=== PATIENT | female | born 1955 | race Caucasian/White ===

== ENCOUNTER → 2017-02-01 | Outpatient (CLI) | payer OTHER ==
[~2017-02-01] MED LIST: ALBUTEROL0.09 MG/A2; ASPIRIN325 MG PO; ASPIRIN81 M1; ATIVAN2 MG; ATIVAN2 MG PO; BACTRIM DS 8001 TA1 PO; CALCIUM PLUS1 TA1; CARDIZEM CD120 MG; CHOLESTEROL; FLONASE 0.05% 121 EA NAS; HYZAAR 25 MG-101 TA1 PO; INDERAL80 MG PO; LASIX20 MG; LIPITOR40 MG PO; LOFIBRA134 MG; NAPROSYN500 MG PO; NORCO 325 MG-51 TAB PO; PARAFON FORTE500 MG PO; PREDNISONE20 M1 PO; PREMARIN0.45 MG; PRILOSEC OTC20 MG PO; PROTONIX40 MG; PYRIDIUM200 MG PO; ROBITUSSIN DM 105 ML PO; SEREVENT DISKU50 MCG; TENORETIC 50 501 TAB PO; TENORMIN50 MG; TRAMADOL HCL50 MG PO; ULTRAM50 MG PO; VENTOLIN H0.09 MG/AC INH; WELLBUTRIN SR150 MG PO; ZANTAC 150150 MG PO
== END | disposition home or self-care (01) ==
LOC: RAD 17:39
DX: M48.07 Spinal stenosis, lumbosacral region (principal); M47.897 Other spondylosis, lumbosacral region; M16.0 Bilateral primary osteoarthritis of hip; I10 Essential (primary) hypertension; E11.9 Type 2 diabetes mellitus without complications

== ENCOUNTER → 2018-09-20 | Outpatient (CLI) | payer MEDICARE | END | disposition home or self-care (01) | LOC: RESCLI 14:16 | DX: E11.59 Type 2 diabetes mellitus with other circulatory complications (principal); E66.9 Obesity, unspecified; I10 Essential (primary) hypertension; F33.1 Major depressive disorder, recurrent, moderate; K21.9 Gastro-esophageal reflux disease without esophagitis; E55.9 Vitamin D deficiency, unspecified; M54.5 Low back pain; G89.29 Other chronic pain; Z79.899 Other long term (current) drug therapy; Z91.041 Radiographic dye allergy status ==

== ENCOUNTER → 2019-03-14 | Outpatient (CLI) | payer MEDICARE | END | disposition home or self-care (01) | LOC: RESCLI 01:07 | DX: E11.59 Type 2 diabetes mellitus with other circulatory complications (principal); I10 Essential (primary) hypertension; E55.9 Vitamin D deficiency, unspecified; K21.9 Gastro-esophageal reflux disease without esophagitis; F33.1 Major depressive disorder, recurrent, moderate; G89.29 Other chronic pain; E78.2 Mixed hyperlipidemia; J45.40 Moderate persistent asthma, uncomplicated; R42 Dizziness and giddiness; R51 Headache; I34.1 Nonrheumatic mitral (valve) prolapse; F41.0 Panic disorder [episodic paroxysmal anxiety]; R00.0 Tachycardia, unspecified; F41.9 Anxiety disorder, unspecified; E66.9 Obesity, unspecified; M25.551 Pain in right hip; M25.552 Pain in left hip; Z68.34 Body mass index [BMI] 34.0-34.9, adult; Z79.899 Other long term (current) drug therapy ==

== ENCOUNTER → 2019-04-16 | Outpatient (CLI) | payer MEDICARE ==
[2019-04-16 15:53] LABS: BASO # 0.1 10*3/uL (0.0-0.1); BASO % 0.6 % (0.0-1.0); EOS # 0.2 10*3/uL (0.0-0.4); EOS % 1.5 % (1.0-4.0); HEMOGLOBIN 12.6 g/dl (12.0-16.0); LYMPH # 2.7 10*3/uL (1.3-4.4); LYMPH % 17.7 % (27.0-41.0); MEAN CELL VOLUME 87.6 fl (81.0-99.0); MEAN CORPUSCULAR HGB 26.9 pg (27.0-31.0); MEAN CORPUSCULAR HGB CONC 30.7 g/dl (33.0-37.0); MEAN PLATELET VOLUME 9.9 fl (9.6-12.3); MONO % 6.8 % (3.0-9.0); NEUT # 11.2 10*3/uL (2.3-7.9); NEUT % 72.8 % (47.0-73.0); PLATELET COUNT AUTOMATED 482 10*3/uL (130-400); RED BLOOD COUNT 4.68 10*6/uL (4.10-5.10); RED CELL DISTRI WIDTH 15.9 % (0-14.5); WHITE BLOOD COUNT 15.4 10*3/uL (4.8-10.8)
[2019-04-16 16:00] LABS: ALBUMIN 3.6 gm/dl (3.1-4.5); ALKALINE PHOSPHATASE 72 U/L (45-117); BUN 14 mg/dl (7-24); CHLORIDE 99 mmol/L (98-107); CHOLESTEROL 192 mg/dL (<200); CREATININE 1.04 mg/dL (0.55-1.02); HDL CHOLESTEROL 54 mg/dl (40-60); POTASSIUM 4.3 mmol/L (3.5-5.1); SGOT/AST 26 IU/L (3-35); SGPT/ALT 19 U/L (12-78); SODIUM 139 mmol/L (136-145); TOTAL PROTEIN 8.6 gm/dL (6.4-8.2); TRIGLYCERIDES 450 mg/dl (<150)
== END | disposition home or self-care (01) ==
LOC: CT 03-23 10:00 → LAB 14:32 → CT 15:00
PROVIDERS: Internal Medicine
DX: E11.59 Type 2 diabetes mellitus with other circulatory complications (principal); E55.9 Vitamin D deficiency, unspecified; E66.9 Obesity, unspecified; I10 Essential (primary) hypertension; E78.2 Mixed hyperlipidemia; R51 Headache; R42 Dizziness and giddiness; M47.816 Spondylosis without myelopathy or radiculopathy, lumbar region; W10.8XXA Fall (on) (from) other stairs and steps, initial encounter; Y93.89 Activity, other specified; Y92.89 Other specified places as the place of occurrence of the external cause; Y99.8 Other external cause status

== ENCOUNTER → 2019-04-17 | Outpatient (CLI) | payer MEDICARE | END | disposition home or self-care (01) | LOC: RESCLI | DX: Z23 Encounter for immunization (principal); F33.1 Major depressive disorder, recurrent, moderate; R42 Dizziness and giddiness; E11.59 Type 2 diabetes mellitus with other circulatory complications; I10 Essential (primary) hypertension; E55.9 Vitamin D deficiency, unspecified; K21.9 Gastro-esophageal reflux disease without esophagitis; E78.2 Mixed hyperlipidemia; J45.40 Moderate persistent asthma, uncomplicated; R26.2 Difficulty in walking, not elsewhere classified; M54.41 Lumbago with sciatica, right side; M54.42 Lumbago with sciatica, left side; Z79.899 Other long term (current) drug therapy ==

== ENCOUNTER → 2019-08-29 | Outpatient (CLI) | payer MEDICARE | END | disposition home or self-care (01) | LOC: RESCLI 00:32 | DX: E11.59 Type 2 diabetes mellitus with other circulatory complications (principal); F33.1 Major depressive disorder, recurrent, moderate; E55.9 Vitamin D deficiency, unspecified; E78.2 Mixed hyperlipidemia; J45.40 Moderate persistent asthma, uncomplicated; K21.9 Gastro-esophageal reflux disease without esophagitis; I10 Essential (primary) hypertension; R42 Dizziness and giddiness ==

== ENCOUNTER → 2020-01-19 | Emergency (ER) | payer MEDICARE ==
[~2020-01-19] VITALS: Ht 167.6 cm; Wt 91.6 kg
[2020-01-19 07:59] LABS: BASO # 0.1 10*3/uL (0.0-0.1); BASO % 0.2 % (0.0-1.0); EOS # 0.6 10*3/uL (0.0-0.4); EOS % 2.6 % (1.0-4.0); HEMATOCRIT 33.5 % (37.0-47.0); LYMPH # 1.2 10*3/uL (1.3-4.4); LYMPH % 5.4 % (27.0-41.0); MEAN CELL VOLUME 81.1 fl (81.0-99.0); MEAN CORPUSCULAR HGB 25.2 pg (27.0-31.0); MEAN PLATELET VOLUME 8.6 fl (9.6-12.3); MONO # 1.1 10*3/uL (0.1-1.0); NEUT # 18.9 10*3/uL (2.3-7.9); NEUT % 85.5 % (47.0-73.0); PLATELET COUNT AUTOMATED 417 10*3/uL (130-400); RED BLOOD COUNT 4.13 10*6/uL (4.10-5.10); RED CELL DISTRI WIDTH 15.6 % (0-14.5); WHITE BLOOD COUNT 22.1 10*3/uL (4.8-10.8)
[2020-01-19 08:16] LABS: ALBUMIN 2.7 gm/dl (3.1-4.5); ALKALINE PHOSPHATASE 93 U/L (45-117); BUN 9 mg/dl (7-24); CHLORIDE 96 mmol/L (98-107); CREATININE 0.68 mg/dL (0.55-1.02); POTASSIUM 2.9 mmol/L (3.5-5.1); SGOT/AST 7 IU/L (3-35); SGPT/ALT 13 U/L (12-78); SODIUM 131 mmol/L (136-145); TOTAL PROTEIN 7.7 gm/dL (6.4-8.2)
[2020-01-19 09:21] VITALS: BP 162/70
== END ==
LOC: ED 07:31
PROVIDERS: Emergency Medicine
DX: G43.909 Migraine, unspecified, not intractable, without status migrainosus (principal); I10 Essential (primary) hypertension; E78.00 Pure hypercholesterolemia, unspecified; E11.9 Type 2 diabetes mellitus without complications; R79.1 Abnormal coagulation profile; Z91.041 Radiographic dye allergy status; Z79.899 Other long term (current) drug therapy; Z79.82 Long term (current) use of aspirin

== ENCOUNTER → 2021-06-24 | Outpatient (CLI) | payer MEDICARE ==
[2021-06-24 14:20] LABS: BASO # 0.1 10*3/uL (0.0-0.1); BASO % 0.9 % (0.0-1.0); EOS # 0.3 10*3/uL (0.0-0.4); EOS % 2.8 % (1.0-4.0); LYMPH # 3.3 10*3/uL (1.3-4.4); LYMPH % 28.7 % (27.0-41.0); MEAN CELL VOLUME 92.8 fl (81.0-99.0); MEAN CORPUSCULAR HGB 30.1 pg (27.0-31.0); MEAN CORPUSCULAR HGB CONC 32.4 g/dl (33.0-37.0); MEAN PLATELET VOLUME 9.2 fl (9.6-12.3); MONO # 0.7 10*3/uL (0.1-1.0); MONO % 6.3 % (3.0-9.0); NEUT # 6.8 10*3/uL (2.3-7.9); NEUT % 60.2 % (47.0-73.0); PLATELET COUNT AUTOMATED 398 10*3/uL (130-400); RED BLOOD COUNT 4.85 10*6/uL (4.10-5.10); RED CELL DISTRI WIDTH 12.5 % (0-14.5); WHITE BLOOD COUNT 11.4 10*3/uL (4.8-10.8)
[2021-06-24 14:41] LABS: ALBUMIN 3.3 gm/dl (3.1-4.5); ALKALINE PHOSPHATASE 97 U/L (45-117); BUN 13 mg/dl (7-24); CHLORIDE 100 mmol/L (98-107); CHOLESTEROL 229 mg/dL (<200); CREATININE 0.89 mg/dL (0.55-1.02); FREE T4 0.91 ng/dl (0.76-1.46); POTASSIUM 4.4 mmol/L (3.5-5.1); SGOT/AST 22 IU/L (3-35); SGPT/ALT 34 U/L (12-78); SODIUM 137 mmol/L (136-145); TOTAL PROTEIN 8.4 gm/dL (6.4-8.2); TRIGLYCERIDES 424 mg/dl (<150)
[2021-06-25 11:07] LABS: CREATININE,URINE 126.3 mg/dL (Not Estab.)
== END | disposition home or self-care (01) ==
LOC: LAB 01:11
PROVIDERS: ATTEND Internal Medicine
DX: E11.9 Type 2 diabetes mellitus without complications (principal); I10 Essential (primary) hypertension

== ENCOUNTER → 2021-07-22 | Outpatient (CLI) | payer MEDICARE | END | disposition home or self-care (01) | LOC: COVID19 16:06 | PROVIDERS: ATTEND Podiatrist Foot & Ankle Surgery | DX: U07.1 COVID-19 (principal) ==

== ENCOUNTER 2021-12-31 20:11 | Inpatient (IN) | payer MEDICARE ==
[~2021-12-31] VITALS: Ht 165.1 cm; Wt 84.0 kg
[2021-12-31 20:15] VITALS: BP 139/61
[2021-12-31] MEDS ORDERED: BUSPAR15 MG PO (20:25)
[2021-12-31] MEDS ORDERED: COZAAR50 M1 PO (20:25)
[2021-12-31] MEDS ORDERED: METFORMIN HYD1000 MG PO (20:25)
[2021-12-31] MEDS ORDERED: Synthroid,Levo50 MCG PO (20:27)
[2021-12-31] MEDS ORDERED: NORVASC10 MG PO (20:29)
[2021-12-31] MEDS ORDERED: PRILOSEC20 M1 PO (20:29)
[2021-12-31 20:37] LABS: BASO # 0.1 10*3/uL (0.0-0.1); BASO % 0.4 % (0.0-1.0); EOS # 0.2 10*3/uL (0.0-0.4); EOS % 0.9 % (1.0-4.0); HEMATOCRIT 40.5 % (37.0-47.0); LYMPH # 1.8 10*3/uL (1.3-4.4); LYMPH % 10.5 % (27.0-41.0); MEAN CELL VOLUME 93.8 fl (81.0-99.0); MEAN CORPUSCULAR HGB 30.8 pg (27.0-31.0); MEAN CORPUSCULAR HGB CONC 32.8 g/dl (33.0-37.0); MEAN PLATELET VOLUME 9.1 fl (9.6-12.3); MONO # 1.4 10*3/uL (0.1-1.0); MONO % 8.3 % (3.0-9.0); NEUT # 13.5 10*3/uL (2.3-7.9); NEUT % 79.5 % (47.0-73.0); PLATELET COUNT AUTOMATED 309 10*3/uL (130-400); RED BLOOD COUNT 4.32 10*6/uL (4.10-5.10); RED CELL DISTRI WIDTH 12.6 % (0-14.5)
[2021-12-31 20:54] LABS: CREATININE 1.17 mg/dL (0.55-1.02); POTASSIUM 4.3 mmol/L (3.5-5.1); TOTAL PROTEIN 8.1 gm/dL (6.4-8.2)
[2021-12-31 21:00] VITALS: BP 168/85
[2021-12-31 22:00] VITALS: BP 138/76
[2021-12-31 23:00] VITALS: BP 138/76
[2021-12-31 23:30] LABS: BILIRUBIN Negative (Negative); BLOOD 2+ (Negative); CLARITY Turbid (Clear); COLOR Dark Yellow (Yellow); GLUCOSE Negative (Negative); KETONE Trace (Negative); LEUKO ESTERASE 3+ (Negative); NITRITE Negative (Negative); PH 5.5 (4.5-8.0)
[2021-12-31 23:56] LABS: WBC TNTC wbc/hpf (0-5)
[2022-01-01] VITALS (9 sets, daily range): BP systolic 136–193; BP diastolic 56–92
[2022-01-01] MEDS ORDERED: LYRICA100 M1 PO (09:36)
[2022-01-01] MEDS ORDERED: JARDIANCE10 MG PO (09:37)
[2022-01-01] MEDS ORDERED: TOPIRAMATE25 M3 PO (09:37)
[2022-01-01] MEDS ORDERED: FEROSUL325 M1 PO (09:37)
[2022-01-01] MEDS ORDERED: Mysoline50 MG PO (09:39)
[2022-01-02] VITALS: BP 149/63
[2022-01-02 06:21] LABS: BASO # 0.1 10*3/uL (0.0-0.1); BASO % 0.6 % (0.0-1.0); EOS # 0.6 10*3/uL (0.0-0.4); EOS % 6.6 % (1.0-4.0); HEMATOCRIT 37.3 % (37.0-47.0); LYMPH # 1.1 10*3/uL (1.3-4.4); LYMPH % 11.8 % (27.0-41.0); MEAN CELL VOLUME 95.6 fl (81.0-99.0); MEAN CORPUSCULAR HGB 31.5 pg (27.0-31.0); MEAN PLATELET VOLUME 9.3 fl (9.6-12.3); MONO # 1.1 10*3/uL (0.1-1.0); MONO % 11.5 % (3.0-9.0); NEUT # 6.6 10*3/uL (2.3-7.9); PLATELET COUNT AUTOMATED 278 10*3/uL (130-400); RED CELL DISTRI WIDTH 12.8 % (0-14.5); WHITE BLOOD COUNT 9.6 10*3/uL (4.8-10.8)
[2022-01-02 08:00] VITALS: BP 137/56
[2022-01-02 12:00] VITALS: BP 131/56
[2022-01-02] MEDS ORDERED: AUGMENTIN 875-875 MG PO (15:51)
[2022-01-02 16:00] VITALS: BP 120/54
== END 2022-01-02 17:22 | disposition home or self-care (01) | DRG 689 ==
LOC: ED 20:11 → 4E 01-01 01:06 → EDHOLD 01-01 01:06 → 4E 01-01 07:28
PROVIDERS: Internal Medicine; ADMIT Internal Medicine; ATTEND Internal Medicine
DX: N39.0 Urinary tract infection, site not specified (principal); G93.41 Metabolic encephalopathy; F33.1 Major depressive disorder, recurrent, moderate; R26.2 Difficulty in walking, not elsewhere classified; E78.2 Mixed hyperlipidemia; F41.1 Generalized anxiety disorder; E03.9 Hypothyroidism, unspecified; K21.00 Gastro-esophageal reflux disease with esophagitis, without bleeding; J45.909 Unspecified asthma, uncomplicated; E83.42 Hypomagnesemia; Z91.041 Radiographic dye allergy status; Z79.899 Other long term (current) drug therapy; N18.31 Chronic kidney disease, stage 3a; I12.9 Hypertensive chronic kidney disease with stage 1 through stage 4 chronic kidney disease, or unspecified chronic kidney disease; E11.22 Type 2 diabetes mellitus with diabetic chronic kidney disease

== ENCOUNTER 2022-02-25 10:58 | Emergency (ER) | payer MEDICARE ==
[~2022-02-25 10:58] MED LIST changes: +AUGMENTIN 875-875 MG PO; +BUSPAR15 MG PO; +COZAAR50 M1 PO; +FEROSUL325 M1 PO; +JARDIANCE10 MG PO; +LYRICA100 M1 PO; +METFORMIN HYD1000 MG PO; +Mysoline50 MG PO; +NORVASC10 MG PO; +PRILOSEC20 M1 PO; +Synthroid,Levo50 MCG PO; +TOPIRAMATE25 M3 PO
[2022-02-25 11:01] VITALS: BP 183/70
[2022-02-25 11:33] LABS: BASO # 0.1 10*3/uL (0.0-0.1); BASO % 0.7 % (0.0-1.0); EOS # 0.4 10*3/uL (0.0-0.4); EOS % 3.4 % (1.0-4.0); HEMATOCRIT 44.9 % (37.0-47.0); LYMPH # 2.7 10*3/uL (1.3-4.4); LYMPH % 22.6 % (27.0-41.0); MEAN CELL VOLUME 93.7 fl (81.0-99.0); MEAN CORPUSCULAR HGB 30.9 pg (27.0-31.0); MONO # 0.9 10*3/uL (0.1-1.0); MONO % 7.8 % (3.0-9.0); NEUT # 7.6 10*3/uL (2.3-7.9); NEUT % 64.6 % (47.0-73.0); PLATELET COUNT AUTOMATED 304 10*3/uL (130-400); RED BLOOD COUNT 4.79 10*6/uL (4.10-5.10); WHITE BLOOD COUNT 11.7 10*3/uL (4.8-10.8)
[2022-02-25 11:44] LABS: BUN 9 mg/dl (7-24); CHLORIDE 107 mmol/L (98-107); POTASSIUM 4.4 mmol/L (3.5-5.1); SODIUM 141 mmol/L (136-145)
[2022-02-25] MEDS ORDERED: CALCITONIN-SAL3.7 ML INH (14:01)
[2022-02-25] MEDS ORDERED: TYLENOL325 M1 PO (14:01)
[2022-02-25] MEDS ORDERED: NAPROXEN250 MG PO (14:01)
== END 2022-02-25 14:06 | disposition home or self-care (01) ==
LOC: ED 10:58
PROVIDERS: Emergency Medicine
DX: S32.010A Wedge compression fracture of first lumbar vertebra, initial encounter for closed fracture (principal); M81.0 Age-related osteoporosis without current pathological fracture; G43.909 Migraine, unspecified, not intractable, without status migrainosus; E78.00 Pure hypercholesterolemia, unspecified; I12.9 Hypertensive chronic kidney disease with stage 1 through stage 4 chronic kidney disease, or unspecified chronic kidney disease; E11.22 Type 2 diabetes mellitus with diabetic chronic kidney disease; N18.31 Chronic kidney disease, stage 3a; Z91.041 Radiographic dye allergy status; Z79.899 Other long term (current) drug therapy; Z90.710 Acquired absence of both cervix and uterus; Z98.890 Other specified postprocedural states; W18.39XA Other fall on same level, initial encounter; Y93.89 Activity, other specified; Y92.89 Other specified places as the place of occurrence of the external cause; Y99.8 Other external cause status

== ENCOUNTER 2022-05-08 11:09 | Emergency (ER) | payer MEDICARE ==
[~2022-05-08] VITALS: Wt 70.3 kg
[~2022-05-08 11:09] MED LIST changes: +AMOXICILLIN500 M2 PO; +CALCITONIN-SAL3.7 ML INH; +CALCITONIN-SAL3.7 ML NAS; +DULCOLAX10 M1 R; +DULOXETINE HCL30 MG PO; +FLEET ENEMA EX230 M1 R; +HYDROCODONE-AC1 EAC1 PO; +LEVOFLOXACIN750 M2 PO; +LORATADINE-D 11 EACH PO; +MILK OF MA400 MG/5 M PO; +NAPROXEN250 MG PO; +STEGLATRO5 MG PO; +TYLENOL325 M1 PO
[2022-05-08 12:29] LABS: BASO # 0.1 10*3/uL (0.0-0.1); BASO % 0.9 % (0.0-1.0); EOS # 0.2 10*3/uL (0.0-0.4); EOS % 2.1 % (1.0-4.0); LYMPH # 2.2 10*3/uL (1.3-4.4); LYMPH % 19.5 % (27.0-41.0); MEAN CELL VOLUME 95.4 fl (81.0-99.0); MEAN CORPUSCULAR HGB 30.1 pg (27.0-31.0); MEAN CORPUSCULAR HGB CONC 31.5 g/dl (33.0-37.0); MEAN PLATELET VOLUME 8.5 fl (9.6-12.3); MONO # 0.8 10*3/uL (0.1-1.0); MONO % 7.2 % (3.0-9.0); NEUT % 69.8 % (47.0-73.0); PLATELET COUNT AUTOMATED 521 10*3/uL (130-400); RED BLOOD COUNT 4.09 10*6/uL (4.10-5.10); RED CELL DISTRI WIDTH 14.7 % (0-14.5); WHITE BLOOD COUNT 11.5 10*3/uL (4.8-10.8)
[2022-05-08 12:45] LABS: ALKALINE PHOSPHATASE 148 U/L (45-117); BUN 10 mg/dl (7-24); CHLORIDE 106 mmol/L (98-107); CREATININE 0.65 mg/dL (0.55-1.02); SGOT/AST 20 IU/L (3-35); SGPT/ALT 12 U/L (12-78); SODIUM 141 mmol/L (136-145); TOTAL PROTEIN 7.3 gm/dL (6.4-8.2)
[2022-05-08 13:01] VITALS: BP 152/71
== END 2022-05-08 15:55 | disposition home or self-care (01) ==
LOC: ED 11:09
PROVIDERS: Emergency Medicine
DX: T82.898A Other specified complication of vascular prosthetic devices, implants and grafts, initial encounter (principal); Y92.89 Other specified places as the place of occurrence of the external cause

== ENCOUNTER 2022-05-19 17:23 | Emergency (ER) | payer MEDICARE ==
[~2022-05-19] VITALS: Wt 68.5 kg
[2022-05-19 17:34] LABS: BILIRUBIN Negative (Negative); BLOOD 2+ (Negative); CLARITY Turbid (Clear); COLOR Yellow (Yellow); GLUCOSE Negative (Negative); KETONE Trace (Negative); LEUKO ESTERASE 3+ (Negative); NITRITE Negative (Negative); SPECIFIC GRAVITY 1.015 (1.001-1.030); UROBILINOGEN 0.2 E.U./dl (0.0-1.0)
[2022-05-19 17:48] LABS: WBC TNTC wbc/hpf (0-5)
[2022-05-19 18:50] LABS: HEMATOCRIT 34.6 % (37.0-47.0); MEAN CELL VOLUME 96.1 fl (81.0-99.0); MEAN CORPUSCULAR HGB 30.8 pg (27.0-31.0); MEAN CORPUSCULAR HGB CONC 32.1 g/dl (33.0-37.0); MEAN PLATELET VOLUME 9.2 fl (9.6-12.3); PLATELET COUNT AUTOMATED 437 10*3/uL (130-400); RED CELL DISTRI WIDTH 15.1 % (0-14.5); WHITE BLOOD COUNT 29.5 10*3/uL (4.8-10.8)
[2022-05-19 18:51] LABS: MANUAL DIFF REFLEX YES
[2022-05-19 19:00] LABS: INTERNATIONAL NORM RATIO 1.1 (2.0-3.5)
[2022-05-19 19:08] LABS: ALKALINE PHOSPHATASE 112 U/L (45-117); BUN 15 mg/dl (7-24); CHLORIDE 105 mmol/L (98-107); CREATININE 0.79 mg/dL (0.55-1.02); POTASSIUM 3.7 mmol/L (3.5-5.1); SGOT/AST 11 IU/L (3-35); SGPT/ALT 8 U/L (12-78); SODIUM 138 mmol/L (136-145); TOTAL PROTEIN 6.9 gm/dL (6.4-8.2)
[2022-05-19 19:11] LABS: PLATELET SUFFICIENCY HIGH (NORMAL); POLYCHROMASIA SLIGHT; TOTAL CELLS COUNTED 100 #CELLS; TOXIC GRANULATION SLIGHT
[2022-05-19 19:13] LABS: OVALOCYTES FEW
[2022-05-20 09:17] LABS: BASO # 0.1 10*3/uL (0.0-0.1); BASO % 0.4 % (0.0-1.0); EOS # 0.1 10*3/uL (0.0-0.4); EOS % 0.5 % (1.0-4.0); HEMATOCRIT 31.3 % (37.0-47.0); LYMPH # 1.5 10*3/uL (1.3-4.4); LYMPH % 7.1 % (27.0-41.0); MEAN CORPUSCULAR HGB 30.9 pg (27.0-31.0); MEAN CORPUSCULAR HGB CONC 32.9 g/dl (33.0-37.0); MEAN PLATELET VOLUME 9.4 fl (9.6-12.3); MONO # 1.3 10*3/uL (0.1-1.0); NEUT # 17.9 10*3/uL (2.3-7.9); NEUT % 85.4 % (47.0-73.0); PLATELET COUNT AUTOMATED 361 10*3/uL (130-400); RED BLOOD COUNT 3.33 10*6/uL (4.10-5.10); RED CELL DISTRI WIDTH 15.3 % (0-14.5)
[2022-05-20 09:28] LABS: ACT PARTIAL THROMBO TIME 33.2 SECONDS (20.0-32.1); INTERNATIONAL NORM RATIO 1.1 (2.0-3.5)
[2022-05-20 09:36] LABS: ALKALINE PHOSPHATASE 119 U/L (45-117); BUN 16 mg/dl (7-24); CHLORIDE 110 mmol/L (98-107); CREATININE 0.53 mg/dL (0.55-1.02); POTASSIUM 3.3 mmol/L (3.5-5.1); SGOT/AST 9 IU/L (3-35); SGPT/ALT 7 U/L (12-78); SODIUM 141 mmol/L (136-145); TOTAL PROTEIN 6.2 gm/dL (6.4-8.2)
[2022-05-20 13:36] VITALS: BP 143/71
== END 2022-05-20 13:58 | disposition short-term general hospital (02) ==
LOC: ED 17:23
PROVIDERS: Emergency Medicine; Physician Assistant
DX: A41.9 Sepsis, unspecified organism (principal); N39.0 Urinary tract infection, site not specified; J18.9 Pneumonia, unspecified organism; Z91.041 Radiographic dye allergy status; Z79.899 Other long term (current) drug therapy; Z90.710 Acquired absence of both cervix and uterus; Z98.890 Other specified postprocedural states

== ENCOUNTER → 2023-02-08 | Outpatient (CLI) | payer MEDICARE | END | disposition home or self-care (01) | LOC: RAD/SH 01:41 | PROVIDERS: ATTEND Internal Medicine | DX: R13.12 Dysphagia, oropharyngeal phase (principal) ==

== ENCOUNTER 2025-02-13 09:05 | Emergency (ER) | payer MEDICARE ==
[~2025-02-13] VITALS: Ht 167.6 cm; Wt 80.7 kg
[~2025-02-13 09:05] MED LIST changes: +ACETAMINOPHEN500 M4 PO; +ASPIRIN CHILDRE81 MG PO; +ATORVASTATIN CA20 M1 PO; +CARVEDILOL3.125 MG PO; +CEFTRIAXON2 GM/50 ML IV; +CHOLESTYRAMINE P4 GM PO; +DOCUSATE SOD100 MG PO; +GERI-TUSSI100 MG/5 M PO; +Ipratropium Brom3 ML INH; +KEPPRA100 MG/1 M PO; +LINEZOLID600 MG PO; +LORATADINE5 MG/5 M6 PO; +LORAZEPAM0.5 M1 PO; +MIRALAX17 GM PO; +MIRTAZAPINE30 M2 PO; +MYLANTA MAXIMU355 M1 PO; +NEURONTIN100 MG PO; +NEURONTIN300 MG PO; +OMEPRAZOLE MAGN20 MG PO; +ONDANSETRON HYDR8 MG PO; +OXYCODONE-ACET1 EAC3 PO; +PULMICORT RESP0.5 M1 INH; +REFRESH TEARS15 ML OU; +REMERON15 M2 PO; +VITAMIN D350 MCG PO; +[UNRECOGNIZED DRUG - OTHER] PO; +[UNRECOGNIZED DRUG - REMARK] PO
[2025-02-13 09:34] LABS: BASO # 0.1 10*3/uL (0.0-0.1); BASO % 0.5 % (0.0-1.0); EOS # 0.2 10*3/uL (0.0-0.4); EOS % 1.2 % (1.0-4.0); MEAN CELL VOLUME 96.3 fl (81.0-99.0); MEAN CORPUSCULAR HGB 30.3 pg (27.0-31.0); MEAN PLATELET VOLUME 9.0 fl (9.6-12.3); MONO # 1.0 10*3/uL (0.1-1.0); MONO % 7.8 % (3.0-9.0); NEUT # 8.6 10*3/uL (2.3-7.9); NEUT % 65.8 % (47.0-73.0); NUCLEATED RED BLOOD CELL 0.0 % (0.0-0.0); NUCLEATED RED BLOOD CELL 0.0 10*3/uL (0.0-0.0); PLATELET COUNT AUTOMATED 250 10*3/uL (130-400); RED CELL DISTRI WIDTH 14.5 % (0-14.5)
[2025-02-13 09:35] VITALS: BP 143/69
[2025-02-13 09:46] LABS: ACT PARTIAL THROMBO TIME 22.2 SECONDS (20.0-32.1)
[2025-02-13 09:58] LABS: BUN 18 mg/dl (9-23); SGPT/ALT 25 U/L (5-49)
[2025-02-13] MEDS ORDERED: MAGNESIUM OXIDE 400 MG TAB PO ONE (10:50)
== END 2025-02-13 11:23 ==
LOC: ED 09:05
PROVIDERS: Internal Medicine
DX: I10 Essential (primary) hypertension (principal); Z91.041 Radiographic dye allergy status; Z88.8 Allergy status to other drugs, medicaments and biological substances; Z79.899 Other long term (current) drug therapy; Z79.84 Long term (current) use of oral hypoglycemic drugs; Z79.82 Long term (current) use of aspirin; Z98.890 Other specified postprocedural states; Z90.710 Acquired absence of both cervix and uterus